=== PATIENT | male | born 1970 | race Caucasian/White ===

== ENCOUNTER 2019-04-12 08:00 | Day surgery (SDC) | payer MEDICAID ==
[~2019-04-12] VITALS: Ht 177.8 cm; Wt 135.9 kg
[2019-04-12 09:38] VITALS: BP 125/63; PULSE 54; TEMP 97.2
[2019-04-12] MEDS ORDERED: SYNTHROID0.075 MG/T PO (09:45)
[2019-04-12] MEDS ORDERED: LEVOXYL0.2 MG PO (09:46)
[2019-04-12] MEDS ORDERED: EFFEXOR XR75 MG/CAP PO (09:48)
[2019-04-12] MEDS ORDERED: ZYLOPRIM 300MG300 MG PO (09:48)
[2019-04-12] MEDS ORDERED: EFFEXOR-XR150 MG PO (09:49)
[2019-04-12] MEDS ORDERED: NAPROSYN500 MG PO (09:50)
[2019-04-12] MEDS ORDERED: PROTONIX 40MG T40 MG PO (09:51)
--- NOTE | 2019-04-12 10:54 | NUR ---
Pt taken via cart to OR by ANNITA Dyson for scheduled surgery.
[2019-04-12 13:00] VITALS: BP 137/69; PULSE 89; TEMP 98.5
--- NOTE | 2019-04-12 13:00 | NUR ---
Pt returned via cart to bay 6. A&O. Tolerating water while in PACU. VSS-see flowsheet. IVF continue to infuse to 20g in right hand. Surgical incisions to abdomen x4 clean, dry and intact with surgical glue. Pt denies pain or nausea. Requested applesauce and pepsi. Side rails up and call light in reach.
[2019-04-12 13:15] VITALS: BP 134/69; PULSE 72
[2019-04-12 13:30] VITALS: BP 133/65; PULSE 63
[2019-04-12 13:45] VITALS: BP 139/69; PULSE 80
--- NOTE | 2019-04-12 14:30 | NUR ---
Pt tolerated applesauce, muffin and pepsi. VS remain stable. C/O mild discomfort in abdomen, incisions remain C/D/I. Encouraged activity to relieve gas from surgery that can cause discomfort. Pt ambulated to bathroom with SBA, voided without difficulty. IV removed, pressure dressing applied. After pt dressed, discharge teaching completed. Pt verbalized understanding. Taken via wheelchair to mothers private vehicle for dc home with her driving.
== END 2019-04-12 14:30 | disposition home or self-care (01) ==
LOC: SDCO 08:00
DX: K81.1 Chronic cholecystitis (principal); M19.90 Unspecified osteoarthritis, unspecified site; E11.9 Type 2 diabetes mellitus without complications; F41.9 Anxiety disorder, unspecified; M10.9 Gout, unspecified; G89.29 Other chronic pain; M54.9 Dorsalgia, unspecified; K21.9 Gastro-esophageal reflux disease without esophagitis; I10 Essential (primary) hypertension; F32.9 Major depressive disorder, single episode, unspecified; E03.9 Hypothyroidism, unspecified; Z83.3 Family history of diabetes mellitus; Z87.891 Personal history of nicotine dependence
CPT/HCPCS: J0690; J1100; J1885; J2405; J2704; J3010; J7120

== ENCOUNTER 2019-12-19 17:58 | Observation (INO) | payer MEDICAID ==
[~2019-12-19] VITALS: Ht 177.8 cm; Wt 136.4 kg
[~2019-12-19 17:58] MED LIST: EFFEXOR XR75 MG/CAP PO; EFFEXOR-XR150 MG PO; LEVOXYL0.2 MG PO; NAPROSYN500 MG PO; PROTONIX 40MG T40 MG PO; SYNTHROID0.075 MG/T PO; ZYLOPRIM 300MG300 MG PO
--- NOTE | 2019-12-19 19:00 | NUR ---
Report received from ANNITA Griffin at 1900. Pt resting in bed, denied needs. Awaiting COVID swab results and orders from . Dr. Phan notified of pt's arrival to unit. Will continue to monitor.
--- NOTE | 2019-12-19 19:10 | NUR ---
Rapid swab completed per house fellow
[2019-12-19 21:08] VITALS: BP 119/64; PULSE 54; TEMP 100.4
--- NOTE | 2019-12-19 22:43 | NUR ---
COVID swab came back negative. Pt taken off isolation precautions. Admission assessment and med rec completed. Pt not a great historian. Reports abdominal pain and N/V for last several days but denies at this time. Currently reports headache and pain in throat, PRN Tylenol administered. Describes throat pain as "feeling like someone is trying to pull out my tonsils." Reports having diarrhea and fevers for several days as well. Had BM and urinated after arrival, BM watery and brown, urine ranjan and cloudy. IV to right AC intact and flushes easily. Dressing reinforced. NS with 20 mEq K+ started at 125 ml/hr and one dose of Zosyn administered. Pt oriented to room. Call light in reach. Will continue to monitor.
[2019-12-20] VITALS (8 sets, daily range): BP systolic 108–135; BP diastolic 51–70; PULSE 52–67; TEMP 98–100.4
[2019-12-20] MEDS ORDERED: PROZAC 20MG20 MG PO (00:10)
[2019-12-20] MEDS ORDERED: PRIL40 PO (00:11)
[2019-12-20] MEDS ORDERED: COLESTID 1GM1 G PO (00:12)
[2019-12-20 00:29] LABS: COLLECTION METHOD CLEAN CATCH
[2019-12-20 00:45] LABS: PH 5 (5-8); SQUAMOUS EPITHELIAL None Seen /hpf; URINE APPEARANCE Clear; URINE BACTERIA None Seen /hpf; URINE BILIRUBIN Negative (NEGATIVE); URINE BLOOD Negative (NEGATIVE); URINE COLOR Yellow; URINE GLUCOSE Negative (NEGATIVE); URINE KETONE Trace (NEGATIVE); URINE LEUKOCYTE ESTERASE Negative (NEGATIVE); URINE NITRATE Negative (NEGATIVE); URINE PROTEIN(semi-quant) 1+ (NEGATIVE); URINE UROBILINOGEN Negative (NEGATIVE); URINE WBC 0-2 /hpf
[2019-12-20 01:43] LABS: CLOSTRIDIUM DIFF A/B NEG; CLOSTRIDIUM DIFF A/B INTERP NonToxigenic C.diff
--- NOTE | 2019-12-20 02:15 | NUR ---
Placed in contact isolation due to positive Cdiff antigen and continuing diarrhea.
--- NOTE | 2019-12-20 05:36 | NUR ---
Asleep in bed most of night. Complaints of headache and throat pain last night, relieved by Tylenol. No complaint of pain since. One loose stool during night. Denies abdominal pain since arrival. Pt has had low grade fevers throughout night with temps around 100F. IV fluids with K+ still infusing at 125 ml/hr. Cdiff antigen positive, pt currently on contact precautions.
[2019-12-20 09:11] LABS: HEMATOCRIT 37.1 % (42.0-52.0); HEMOGLOBIN 12.8 g/dl (13.5-18.0); MEAN CELL VOLUME 96 fl (80.0-100.0); MEAN CORPUSCULAR HEMOGLOBIN 33 pg (27.0-31.0); MEAN CORPUSCULAR HGB CONC 35 g/dl (33.0-37.0); MEAN PLATELET VOLUME 10.7 fl (7.4-10.4); PLATELET COUNT 186 K/mm3 (130-400); RED BLOOD COUNT 3.88 M/mm3 (4.20-5.60); REDCELL DISTRIBUTION WIDTH-CV 11.9 % (11.5-14.5)
[2019-12-20 09:23] LABS: CALCIUM 8.2 mg/dL (8.4-10.2); CREATININE, serum 1.03 (0.66-1.25); POTASSIUM 3.9 mmol/L (3.4-5.0)
[2019-12-20 09:32] LABS: BAND 16 % (0-10); LYMPHOCYTE 14 % (20.0-51.0); NEUTROPHILS 56 % (42.0-75.2)
[2019-12-20 09:33] LABS: PLATELET ESTIMATE NORMAL (NORMAL)
--- NOTE | 2019-12-20 10:12 | NUR ---
Pt assessment completed and charted. Medications administered per may. Pt laying in bed, A&O, independent in room. Pt has RAC IV, NS w/ 20K MEQ running, no issues noted. Pt on room air, breathing is even and unlabored, denies SOB. Pt denies chest pain, N/V, abdominal pain, numbness or tingling. Pt c/o headache and some diarrhea, this nurse has not witnessed diarrhea yet. LS CTA, BS active X4, no edema noted. Heart RRR. Tylenol PRN administered per may, pt also running temp of 100.0 this morning. Pt requested to shower, set up for that. No further needs at this time. Call light within reach.
--- NOTE | 2019-12-20 13:10 | NUR ---
Pt VSS, Soft BP, will monitor, Temp down to 98.4. Pt showered, states he still has a bit of a headache, rating pain 8/10.
--- NOTE | 2019-12-20 16:23 | NUR ---
Pt received PRN [place] per mar, BPs improved. VSS. No further needs. IVF rate decreased to 80ml/hr per additional nursing order.
--- NOTE | 2019-12-20 16:23 | NUR ---
The patient tested postive for c.diff. SWEstelle, attempted to contact the patient to discuss discharge plan. The patient did not answer. This SW contacted the patient's mother, Tika Arce (ph#[phone]), to complete intake. Tika did not realize the patient was here. Tika's and the patient's father is also hospitalized at [facility] at this time. Tika states that the patient lives alone in [place]. He is independent with ADLs and does not have any DME. Tika states that the patient has a female PCP in [place]. He receives his medications at [facility] in [place]. She states that she is unsure if the patient has a DPOA-HC. Tika states that the patient is . He has five children in all. Four are adults. His yymqgha-jfgs-axo is staying with Tika right now. SW to continue to follow.
--- NOTE | 2019-12-20 23:43 | NUR ---
pt resting in bed, bowel prep started and pt verbalizes understanding. heart sounds are regular and lung sounds are clear. pt denies shortness of breath and chest pain. pt reports a headache, gave tylenol per MAR. will continue to monitor.
[2019-12-21 03:52] VITALS: BP 115/64; PULSE 54; TEMP 98.6
--- NOTE | 2019-12-21 05:33 | NUR ---
pt resting in bed most of the night, frequent liquid stools throughout the night. pt continues to finish bowel prep. pt reported headache throughout the night, gave tylenol per MAR. will continue to montior.
[2019-12-21 06:36] LABS: HEMOGLOBIN 12.1 g/dl (13.5-18.0); MEAN CELL VOLUME 96 fl (80.0-100.0); MEAN CORPUSCULAR HEMOGLOBIN 32 pg (27.0-31.0); MEAN CORPUSCULAR HGB CONC 34 g/dl (33.0-37.0); MEAN PLATELET VOLUME 10.5 fl (7.4-10.4); PLATELET COUNT 193 K/mm3 (130-400); RED BLOOD COUNT 3.74 M/mm3 (4.20-5.60); REDCELL DISTRIBUTION WIDTH-CV 11.9 % (11.5-14.5)
[2019-12-21 06:54] LABS: CALCIUM 8.1 mg/dL (8.4-10.2); CREATININE, serum 0.94 (0.66-1.25); POTASSIUM 3.7 mmol/L (3.4-5.0)
[2019-12-21 07:04] LABS: C-REACTIVE PROTEIN 12.3 mg/dL (0.0-0.9)
[2019-12-21 07:33] LABS: HEMATOCRIT 35.7 % (42.0-52.0)
[2019-12-21 08:23] VITALS: BP 121/68; PULSE 51; TEMP 97.9
--- NOTE | 2019-12-21 09:00 | NUR ---
Assessment completed, alert/oriented, vital signs stable, cynthia pain, denies N/V, abdomen is soft and non-tender and BS+, scheduled for EGD/Colon/Cysto this morning, did bowel prep overnight with good results, has been NPO and consent signed, denies other needs at this time
--- NOTE | 2019-12-21 09:00 | NUR ---
patient is going down for EGD/Colon/cysto at this time, consent(s) signed, IVF on gravity tubing and patient has completed Bowel prep over night and has been NPo sence midnight
[2019-12-21 09:14] LABS: BAND 18 % (0-10); BASOPHIL 1 % (0-2); EOSINOPHIL 2 % (0-4); NEUTROPHILS 34 % (42.0-75.2)
[2019-12-21 09:16] LABS: LYMPHOCYTE 32 % (20.0-51.0); PLATELET ESTIMATE NORMAL (NORMAL)
[2019-12-21 11:31] VITALS: BP 132/73; PULSE 53; TEMP 97.7
[2019-12-21] MEDS ORDERED: CEFTIN500 MG PO (13:54)
[2019-12-21] MEDS ORDERED: FLAGYL500 MG PO (13:54)
[2019-12-21 17:29] VITALS: BP 120/60; PULSE 54; TEMP 97.7
[2019-12-21 19:26] VITALS: BP 119/75; PULSE 50; TEMP 97.7
--- NOTE | 2019-12-21 22:56 | NUR ---
Pt resting in bed, on contact precautions. pt reports headache rated a 7 out of 10, gave tylenol per MAR. heart sounds are regular and lungs are clear. pt denies shortness of breath, cough or chest pain. pt denies nausea or vomiting. independent in the room, IV fluids infusing. no other needs at this time.
[2019-12-21 23:58] VITALS: BP 129/67; PULSE 55; TEMP 98.5
--- NOTE | 2019-12-22 00:14 | NUR ---
pt reported that tylenol did not help his headache, gave norco per MAY. pt is awake and alert, will continue to monitor.
[2019-12-22 04:25] VITALS: BP 120/69; PULSE 56; TEMP 98.1
--- NOTE | 2019-12-22 05:17 | NUR ---
pt sleeping in bed most of the night, independent in room. pt reported headache, gave tylenol per MAR. did not relieve pain, gave norco per MAR. pt reports improvement in pain. pt on room air. no other needs at this time, will continue to montior.
[2019-12-22 08:00] VITALS: BP 138/368; BP 138/68; PULSE 57; TEMP 98.8
--- NOTE | 2019-12-22 09:00 | NUR ---
Patient laying in bed watching TV. A&Ox3. VSS. IV CDI, fluids infusing. Reporting a headache, pain medication requested. No further needs expressed from the patient. Call light within reach. Contact precautions in place.
--- NOTE | 2019-12-22 13:15 | NUR ---
Discharge paperwork reviewed with the patient. Patient verbalized an understanding to follow doctors orders. IV removed, tip intact, gauze applied. Patient request to take a shower before leaving to go home. No further needs expressed from the patient. Nurse walked the patient and daughter to ER entrance. Personal belongings with the patient
== END 2019-12-22 13:15 | disposition home or self-care (01) ==
LOC: MEDICAL 17:58 → PEDS 17:58 → MEDICAL 12-20 21:43
PROVIDERS: ADMIT Surgery
DX: K29.50 Unspecified chronic gastritis without bleeding (principal); N30.80 Other cystitis without hematuria; D12.2 Benign neoplasm of ascending colon; D12.8 Benign neoplasm of rectum; K57.30 Diverticulosis of large intestine without perforation or abscess without bleeding; F41.9 Anxiety disorder, unspecified; I10 Essential (primary) hypertension; K21.9 Gastro-esophageal reflux disease without esophagitis; E03.9 Hypothyroidism, unspecified; R20.2 Paresthesia of skin; F31.9 Bipolar disorder, unspecified; M10.9 Gout, unspecified; M54.10 Radiculopathy, site unspecified; G89.29 Other chronic pain; M19.90 Unspecified osteoarthritis, unspecified site; E66.9 Obesity, unspecified; Z68.41 Body mass index [BMI] 40.0-44.9, adult; Z20.828 Contact with and (suspected) exposure to other viral communicable diseases; Z91.048 Other nonmedicinal substance allergy status; Z88.7 Allergy status to serum and vaccine; Z90.49 Acquired absence of other specified parts of digestive tract; Z79.899 Other long term (current) drug therapy
CPT/HCPCS: G0378; G0379; J1650; J2543; J2704; J3480; J7120

== ENCOUNTER 2020-11-28 11:03 | Inpatient (IN) | payer MEDICAID ==
[~2020-11-28] VITALS: Ht 177.8 cm; Wt 124.6 kg
[~2020-11-28 11:03] MED LIST changes: +CEFTIN500 MG PO; +COLESTID 1GM1 G PO; +FLAGYL500 MG PO; +PRIL40 PO; +PROZAC 20MG20 MG PO
[2021-01-07] VITALS (11 sets, daily range): BP systolic 107–199; BP diastolic 55–78; PULSE 44–78; TEMP 97.5–98.1
--- NOTE | 2021-01-07 08:10 | NUR ---
Patient ambulated back to bay #6 without difficuly, using a steady gait. Vitals obtained. Consent signed. Patient stated he is a very difficult stick. IV was successful on the third attempt using a #20 in the left hand. LR is infusing without difficuly. IVPB flagyl started and is currently infusing without difficuly. PO meds administered. Medication list reviewed and patient stated stopping all medicaitons two years ago due to the side effects. He stated that he was "very mad about having to take medication." DR notified. Warm blanket given, non-slip socks are on and call lazcano is within reach. Patient has voided.
[2021-01-07 09:07] LABS: BASO % 0.6 % (0.0-2.0); EOS # 0.1 K/mm3 (0.0-0.7); EOS % 1.7 % (0-4.0); GRAN # 4.4 K/mm3 (1.4-6.5); GRAN % 66.8 % (42.2-75.2); HEMATOCRIT 44.4 % (42.0-52.0); HEMOGLOBIN 15.2 g/dl (13.5-18.0); LYMPH # 1.3 K/mm3 (1.2-3.4); LYMPH % 19.2 % (20.0-51.0); MEAN CELL VOLUME 98 fl (80.0-100.0); MEAN CORPUSCULAR HEMOGLOBIN 34 pg (27.0-31.0); MEAN CORPUSCULAR HGB CONC 34 g/dl (33.0-37.0); MEAN PLATELET VOLUME 9.8 fl (7.4-10.4); MONO # 0.8 K/mm3 (0.1-0.6); MONO % 11.4 % (1.7-9.3); PLATELET COUNT 227 K/mm3 (130-400); RED BLOOD COUNT 4.54 M/mm3 (4.20-5.60); REDCELL DISTRIBUTION WIDTH-CV 12.1 % (11.5-14.5)
[2021-01-07 09:20] LABS: CALCIUM 10.3 mg/dL (8.4-10.2); CREATININE, serum 1.09 mg/dL (0.72-1.25); POTASSIUM 4.2 mmol/L (3.5-4.5)
--- NOTE | 2021-01-07 12:45 | NUR ---
Patient got up to void at this time. IV reconnected after getting back to bed.
--- NOTE | 2021-01-07 14:42 | NUR ---
Patient received post op from Maryellen Raya. Patient awake, but sleepy. Vitals stable on room air. Abdomen soft. Insicion site edges well approximated. Dupont to DD. Ice water provided, denies nausea. Tylenol given per schedule. Eras protocol scheduled.
--- NOTE | 2021-01-07 19:27 | NUR ---
Patient has done well post op. Vitals stable, he continues to be bradycardic. Eras protocol. Does report shoudler pain, we reviewed gas pain. Patient wanted to try and have BM. Assisted to the bathroom. He has tolerted clear liquids without nausea. Dupont to DD, marginal urineoutput. Continue with IVF. Scds ble. Report to darnell Abarca
--- NOTE | 2021-01-07 20:00 | NUR ---
Report received, assumed care for shift. Assessment complete. A&Ox4. Denies pain/nausea/shortness of breath. VS remain stable. Lap sites x5-edges well approximated-no drainage noted. Low transverse abdominal incision-edges well approximated-no drainage noted. Surgical glue intact. Has tolerated clear liquids. Adhering to no straws or corbonation. Chewing gum. Dupont cath with clear yellow urine. Up out of bed at this time with stand by assist. Ambulated approx 100 feet. SCDs bilat. Denies questions/concerns. Call light in reach. Will monitor.
--- NOTE | 2021-01-07 20:10 | NUR ---
Called stating he changed his mind and would like a pain pill. Rating pain 6/10 on pain scale. States after walking pain was worse. Oxycodone given per dr elizabeth.
[2021-01-08 00:32] VITALS: BP 98/52; PULSE 48; TEMP 97.8
--- NOTE | 2021-01-08 03:27 | NUR ---
Resting eyes closed. No s/s of pain or discomfort noted.
[2021-01-08 05:00] VITALS: BP 95/53; PULSE 55; TEMP 97.3
--- NOTE | 2021-01-08 05:01 | NUR ---
Rating pain 2/10 on pain scale to abdomen. Scheduled motrin given. Reports +flatus. Denies nausea/shortness of breath. VS remain stable. Received oxycodone x1 for pain early in shift. Was up out of bed x1. Tolerated clear liquids/crackers. Diet advanced for AM meal. Output adequate for shift but remains tea colored. Denies current needs. Call light in reach. Will monitor.
[2021-01-08 06:26] LABS: HEMATOCRIT 37.9 % (42.0-52.0)
[2021-01-08 06:31] LABS: HEMOGLOBIN 13.1 g/dl (13.5-18.0)
[2021-01-08 06:55] LABS: CALCIUM 9.1 mg/dL (8.4-10.2); CREATININE, serum 1.09 mg/dL (0.72-1.25); MAGNESIUM 1.9 mg/dL (1.6-2.6); PHOSPHOROUS 3.6 mg/dL (2.3-4.7); POTASSIUM 4.1 mmol/L (3.5-4.5)
[2021-01-08 07:09] VITALS: BP 109/61; PULSE 44; TEMP 98.6
--- NOTE | 2021-01-08 09:35 | NUR ---
Patient alert and oriented, answers questions appropriately. See assessment. Abdomen soft, tender, non distended. Bowel sounds active x4 quads. +Flatus. Lap and low transverse incisions to abdomen with edges well approximated, no redness or drainage noted. Dupont catheter in place, patent, draining clear yellow urine. Post op exercises reviewed with patient. No c/o at this time.
--- NOTE | 2021-01-08 10:14 | NUR ---
ANALI met with the patient to discuss discharge plan. The patient lives alone in [place]. He reports independence with ADLs and has a cane. The patient's PCP is Dr. Maddi Gutierrez in [place] and he receives his medications from [facility] in [place]. He reports no difficulties obtaining his meds. The patient has a DPOA-HC in EMR that designates his ex-. The patient reports that he would like to complete a new DPOA-HC and designate his mother, Tika Arce (ph#[phone]). ANALI provided the form. ANALI and CHRISTINA Gonsalez, witnessed the patient's signature. ANALI provided the patient with the orginal and some copies. ANALI placed a copy in the patient's chart. The patient plans to return home upon discharge. No additional needs at this time. *Discharge plan: home*
[2021-01-08 12:19] VITALS: BP 128/69; PULSE 45; TEMP 97.6
[2021-01-08 16:00] VITALS: BP 139/91; PULSE 57; TEMP 97.9
[2021-01-08 19:32] VITALS: BP 113/59; PULSE 63; TEMP 98.6
--- NOTE | 2021-01-08 19:33 | NUR ---
RECEIVED CHANGE OF SHIFT REPORT FROM DAY SHIFT NURSE.
[2021-01-09] VITALS (7 sets, daily range): BP systolic 100–123; BP diastolic 54–78; PULSE 56–82; TEMP 97.7–98.8
--- NOTE | 2021-01-09 | NUR ---
PATIENT UP INDEPENDENTLY IN ROOM AND IN HALLS WITH NO REPORTED PROBLEMS OR CONCERNS. BRADFORD IN PLACE, DRAINING CLEAR DARK YELLOW URINE. OBSERVED DRIED BLOODY DRAINAGE TO END OF PENIS AND AROUND CATHETER. REPORTED SOME DISCOMFORT WITH BRADFORD CATH CARE DUE TO OBSERVED REDNESS URINARY MEATUS EDGES WITH NO ACTIVE DRAINAGE OBSERVED DURIONG BRADFORD CATH CARE. RESTING WITH EYE CLOSED, ONLY WAKES WHEN HIS NAME IS CALLED. DENIES CHEST PAIN/SOA/NAUSEA SO FAR THIS SHIFT.
--- NOTE | 2021-01-09 06:54 | NUR ---
CHANGE OF SHIFT REPORT GIVEN TO DAY SHIFT NURSELAURA RN.
--- NOTE | 2021-01-09 08:59 | NUR ---
Patient resting in bed. Offered a walk, not interested at this time. He reports tolerting breakfast. Denies nausea. Pain managed at this time per ERAS. Abdomen soft, incision site edges well approximated. rounded. Will monitor.
--- NOTE | 2021-01-09 11:27 | NUR ---
Patient has voided since giles removal. Student nurse assist with cares. He ambulated the halls independently. Will monitor.
--- NOTE | 2021-01-09 18:36 | NUR ---
Patient continues to do well. Minimal needs or complaints. Continues to tolerated meals. Ant issues going to the bathroom. Will report off to nightnurse
--- NOTE | 2021-01-09 20:56 | NUR ---
PT IN BED, REPORTS PAIN TO ABD 5/10. MEDICATED WITH OXYCODONE 5MG PO WITH SCHEDULED ES TYLENOL. LAP SITES TO ABD D/I. SL TO LEFT HAND. VOIDING WITHOUT PROBLEM.
--- NOTE | 2021-01-10 03:00 | NUR ---
PT DROWSY, TAKES SCHEDULED TYLENOL AT THIS TIME.
[2021-01-10 03:38] VITALS: BP 115/65; PULSE 76; TEMP 97.5
--- NOTE | 2021-01-10 06:00 | NUR ---
SCHEDULED AM MEDS GIVEN. NO REQUEST FOR STRONGER PAIN MEDS AT THIS TIME.
--- NOTE | 2021-01-10 08:00 | NUR ---
Patient in bed resting. Alert and oriented x 3. Assessment complete. Lap sites x5 and low transverse site with edges well approximated. INT to right hand. Paient denies pain at this time. Denies needs at this time.
[2021-01-10 08:27] VITALS: BP 104/56; PULSE 56; TEMP 97.8
--- NOTE | 2021-01-10 10:00 | NUR ---
Discharge eduation provided to patient. Educated on when to call provider and schedule follow up appointment. Patient educated on signs and symptoms of infection. All questions answered. INT to right hand discontinued, catheter tip intact. Denies needs at this time. Will report off to rn night.
== END 2021-01-10 10:00 | disposition home or self-care (01) | DRG 330 ==
LOC: SURG 01-07 08:02 → INPTSU 01-07 08:02 → SURG 01-07 10:00
PROVIDERS: ADMIT Surgery
PROC: 8E0W4CZ Robotic Assisted Procedure of Trunk Region, Percutaneous Endoscopic Approach (ICD-10-PCS; 2021-01-07)
PROC: 0TJB8ZZ Inspection of Bladder, Via Natural or Artificial Opening Endoscopic (ICD-10-PCS; 2021-01-07)
PROC: 0DTN4ZZ Resection of Sigmoid Colon, Percutaneous Endoscopic Approach (ICD-10-PCS; principal; 2021-01-07 10:00)
DX: K57.32 Diverticulitis of large intestine without perforation or abscess without bleeding (principal); N32.1 Vesicointestinal fistula
CPT/HCPCS: A4314; A9284; C1769; J0690; J1170; J1650; J1885; J2250; J2405; J2704; J2795; J3010; J7120

== ENCOUNTER 2021-01-22 16:05 | Inpatient (IN) | payer MEDICAID ==
[~2021-01-22] VITALS: Ht 177.8 cm; Wt 118.9 kg
--- NOTE | 2021-01-22 19:49 | NUR ---
Pt. arrived to the floor at 1900. Pt. is A&OX3, assessment complete. INT to lt. ac and rt. forearm. Pt. reports pain at a 5 at this time. Abd. incisions noted from previous surgery noted. sites are well approximated. Dupont catheter placed at [facility]. Urine is clear yellow. Pt. denies needs, call light within reach.
[2021-01-22 19:54] VITALS: BP 97/49; PULSE 97; TEMP 98.8
[2021-01-22 23:01] VITALS: BP 105/57; PULSE 89; TEMP 97.9
[2021-01-23] VITALS (14 sets, daily range): BP systolic 88–116; BP diastolic 46–62; PULSE 70–89; TEMP 98.1–99.3
[2021-01-23 07:13] LABS: ALBUMIN 2.2 gm/dL (3.5-5.0); BILIRUBIN,TOTAL 1.1 mg/dL (0.2-1.2); CALCIUM 8.6 mg/dL (8.4-10.2); CREATININE, serum 0.82 mg/dL (0.72-1.25); POTASSIUM 3.9 mmol/L (3.5-4.5); TOTAL PROTEIN 5.7 gm/dL (6.2-8.1)
[2021-01-23 07:21] LABS: HEMOGLOBIN 10.9 g/dl (13.5-18.0); MEAN CELL VOLUME 98 fl (80.0-100.0); MEAN CORPUSCULAR HEMOGLOBIN 33 pg (27.0-31.0); MEAN CORPUSCULAR HGB CONC 33 g/dl (33.0-37.0); MEAN PLATELET VOLUME 10.1 fl (7.4-10.4); PLATELET COUNT 472 K/mm3 (130-400); RED BLOOD COUNT 3.33 M/mm3 (4.20-5.60); REDCELL DISTRIBUTION WIDTH-CV 12.5 % (11.5-14.5)
[2021-01-23 07:23] LABS: HEMATOCRIT 32.7 % (42.0-52.0)
[2021-01-23 08:10] LABS: BAND 33 % (0-10); EOSINOPHIL 1 % (0-4); LYMPHOCYTE 3 % (20.0-51.0); NEUTROPHILS 60 % (42.0-75.2); PLATELET ESTIMATE INCREASED (NORMAL)
--- NOTE | 2021-01-23 10:00 | NUR ---
Patient alert and oriented, answers questions appropriately. See assessment. Abdomen, firm, distended. Bowel sounds active x4 quads. Previous lap sites to abdomen with edges well approximated, no redness or drainage noted. Dupont catheter in place to dependent drainage, odorous, thick dark yellow/orange urine noted. No c/o at this time.
--- NOTE | 2021-01-23 11:12 | NUR ---
youth support worker met with patient to discuss discharge plan. Patient states that he lives at home alone in [place]. Patient verbalizes that he is fully independent with his ADL's and does not utilize any DME or O2 at home. Patient states that his PCP is Dr. Maddi Gutierrez out of [place] and her uses [facility] in [place] for perscriptions with no cost difficulty. Patient reports that he does not have a DPOA-HC established. This sw educated the patient and he verbalizes his understanding. States that he is not but does have a 16yr old son. Patient's mother Tika ([phone]) is his NOK. Patient is planning on returning home post dc and has no concerns. Discharge plan: Home
--- NOTE | 2021-01-23 12:18 | NUR ---
Patient to IR at 0945. Returns at 1045. Assessment unchanged except abscess drain in place to mid low abdomen, draining scant amount brown drainage. No c/o at this time.
--- NOTE | 2021-01-23 22:30 | NUR ---
Pt. sitting up in bed. Pt. is A&OX3, assessment complete. INT to lt. ac patent. INT rt. forearm patent, IV fluids infusing per orders. Pt. reports pain at a 4 on pain scale, gave pain meds per orders. Pt. denies further needs, call light within reach.
[2021-01-24] VITALS (7 sets, daily range): BP systolic 104–127; BP diastolic 58–77; PULSE 61–77; TEMP 97.2–98.6
--- NOTE | 2021-01-24 07:45 | NUR ---
Patient reporting tingling/itching in mouth and throat. Patient thinks it might be the Zosyn. No complaints of pain, SOB. Zosyn stopped, will notify pharmacy and doctor. Call light within reach
[2021-01-24 08:00] LABS: HEMOGLOBIN 11.1 g/dl (13.5-18.0); MEAN CELL VOLUME 98 fl (80.0-100.0); MEAN CORPUSCULAR HEMOGLOBIN 32 pg (27.0-31.0); MEAN CORPUSCULAR HGB CONC 33 g/dl (33.0-37.0); MEAN PLATELET VOLUME 9.7 fl (7.4-10.4); PLATELET COUNT 486 K/mm3 (130-400); RED BLOOD COUNT 3.44 M/mm3 (4.20-5.60); REDCELL DISTRIBUTION WIDTH-CV 12.5 % (11.5-14.5)
--- NOTE | 2021-01-24 08:00 | NUR ---
Patient laying in bed, A&Ox4. VSS. IV CDI. Drain LLQ CDI. Dupont intact. Nurse restarted IV Zosyn and the patient reported same symptoms of itching tongue and throat. Pharmacy and Doctor aware. Reports pain/tenderness in abdomen. Pain medication given as requested. Call light within reach. No further needs expressed
[2021-01-24 08:05] LABS: HEMATOCRIT 33.6 % (42.0-52.0)
[2021-01-24 08:24] LABS: CREATININE, serum 0.73 mg/dL (0.72-1.25); POTASSIUM 4.2 mmol/L (3.5-4.5)
--- NOTE | 2021-01-24 18:04 | NUR ---
Patient laying in bed throughout the day. A&Ox4. VSS. IV CDI, fluids infusing. Reposting pain in abdomen, pain medication given when requested. Drain intact, minimal output. Dupont intact. Nursing staff encouraging PO intake. No further needs expressed. Call light within reach
--- NOTE | 2021-01-24 21:00 | NUR ---
Pt. sitting up in bed at this time. Pt. is A&OX3, assessment complete. INT to lt. ac patent, IV to rt. forearm patent, IV fluids infusing per orders. Abscess drain with brown drainage noted. Dupont catheter to DD, urine is ranjan and cloudy but looks improved from this am. Pt. denies further needs, call light within reach.
--- NOTE | 2021-01-24 23:45 | NUR ---
Pt. reports that the giles catheter is causing him a lot of pain. Pt. asked if it could by discontinued. Dr. Mak notified. Dr. does not want giles removed at this time. New pain med orders received. Pt. educated on why the dr. does not want the Giles removed. Pt. voices understanding and willing to try toradol. Also applied KY jelly to tip of penis to help with discomfort. Pt. reports that that has helped a little. Pt. denies further needs, call light within reach.
[2021-01-25 03:06] VITALS: BP 104/65; PULSE 53; TEMP 98.4
[2021-01-25 08:00] VITALS: BP 133/78; PULSE 54
--- NOTE | 2021-01-25 08:00 | NUR ---
Patient sleeping in bed, easily awakened with verbal command. A&Ox3. VSS. IV CDI, fluids infusing. Denies pain and discomfort. Lap sitesx7 CDI. Drain CDI. Brown output. Dupont intact. No further needs expressed. Call light within reach
[2021-01-25 10:46] LABS: HEMOGLOBIN 11.5 g/dl (13.5-18.0); MEAN CELL VOLUME 102 fl (80.0-100.0); MEAN CORPUSCULAR HEMOGLOBIN 32 pg (27.0-31.0); MEAN CORPUSCULAR HGB CONC 32 g/dl (33.0-37.0); MEAN PLATELET VOLUME 10.2 fl (7.4-10.4); PLATELET COUNT 505 K/mm3 (130-400); RED BLOOD COUNT 3.57 M/mm3 (4.20-5.60); REDCELL DISTRIBUTION WIDTH-CV 12.6 % (11.5-14.5)
[2021-01-25 10:48] LABS: HEMATOCRIT 36.3 % (42.0-52.0)
[2021-01-25 11:07] LABS: ALBUMIN 2.4 gm/dL (3.5-5.0); BILIRUBIN,TOTAL 0.7 mg/dL (0.2-1.2); CALCIUM 8.4 mg/dL (8.4-10.2); CREATININE, serum 0.75 mg/dL (0.72-1.25); POTASSIUM 5.2 mmol/L (3.5-4.5); TOTAL PROTEIN 5.4 gm/dL (6.2-8.1)
[2021-01-25 11:34] LABS: BAND 7 % (0-10); EOSINOPHIL 3 % (0-4); LYMPHOCYTE 12 % (20.0-51.0); NEUTROPHILS 72 % (42.0-75.2)
[2021-01-25 11:35] LABS: PLATELET ESTIMATE INCREASED (NORMAL)
[2021-01-25 11:56] VITALS: BP 130/73; PULSE 54; TEMP 97.5
--- NOTE | 2021-01-25 14:28 | NUR ---
Patient recieved from ANNITA Gallego. Upon initial encounter patient denies any pain, discomfort, SOA, or further needs at this time. Call light inreach. Encourged to call if needs arise.
[2021-01-25 16:00] VITALS: BP 121/75; PULSE 56; TEMP 97.5
--- NOTE | 2021-01-25 18:00 | NUR ---
Patient has had an ok day. PRN zofran given for upset stomach. Dupont catheter in place, securement device in use, no kinks in tubing. Cath care completed. Patient denies any pain, discomfort, or further needs at this time. Call light in reach.
[2021-01-25 22:10] VITALS: BP 126/66; PULSE 56; TEMP 98.4
--- NOTE | 2021-01-25 22:31 | NUR ---
Patient received from ANNITA Prince. Upon enter the room, patient in bed and watching TV. Patient A/Ox4. IVF infusing per MAR. Noticed right forearm IV site infiltrated. Right forearm very swollen. IV removed and elevated arm on the pillow. Patient denies N/V but states having some abdominal discomfort. PRN [place] given for pain/discomfort. Pepsi and crackers provided per patient request. Call light in reach. Will continue to monitor.
[2021-01-26] VITALS (7 sets, daily range): BP systolic 108–116; BP diastolic 60–74; PULSE 54–64; TEMP 97.5–98.2
--- NOTE | 2021-01-26 06:00 | NUR ---
Patient had x1 loose BM this morning. Changed brief, quinton-care and giles care provided. Call light in reach. Will continue to monitor.
[2021-01-26 06:10] LABS: HEMOGLOBIN 11.9 g/dl (13.5-18.0); MEAN CELL VOLUME 99 fl (80.0-100.0); MEAN CORPUSCULAR HEMOGLOBIN 32 pg (27.0-31.0); MEAN CORPUSCULAR HGB CONC 32 g/dl (33.0-37.0); MEAN PLATELET VOLUME 9.8 fl (7.4-10.4); PLATELET COUNT 565 K/mm3 (130-400); REDCELL DISTRIBUTION WIDTH-CV 12.4 % (11.5-14.5)
[2021-01-26 06:12] LABS: HEMATOCRIT 36.7 % (42.0-52.0)
[2021-01-26 06:43] LABS: ALBUMIN 2.3 gm/dL (3.5-5.0); CALCIUM 8.3 mg/dL (8.4-10.2); CREATININE, serum 0.73 mg/dL (0.72-1.25); PHOSPHOROUS 4.5 mg/dL (2.3-4.7)
[2021-01-26 07:15] LABS: BAND 2 % (0-10); EOSINOPHIL 2 % (0-4); LYMPHOCYTE 10 % (20.0-51.0); NEUTROPHILS 73 % (42.0-75.2); PLATELET ESTIMATE INCREASED (NORMAL)
--- NOTE | 2021-01-26 09:00 | NUR ---
Pt sleeping upon entering room. He reported that he did not fall asleep until about 5am. Pt reports not having much of an appetite and that his stomach just feels quezy. Incisions all well approximated with no redness or drainage noted - drain in place with small amount of drainage. Pt denies any needs, requests lights to be out so that he can get some sleep
--- NOTE | 2021-01-26 11:00 | NUR ---
Pt resting with eyes closed, even non labored breathing
--- NOTE | 2021-01-26 17:51 | NUR ---
Pt rested off and on throughout the day. He is tolerating PO intake, but is not eating a lot. Reports that he is overall feeling better. Drain putting out small amount of output. Pt reports that he is having some loose stool and is asking for something. Will notify physician
--- NOTE | 2021-01-26 20:20 | NUR ---
Pt. laying in bed watching TV at this time. Pt. is A&OX3, assessment complete. IV to lt. ac patent. Pt. reports pain to abd at a 4 on pain scale, gave pain meds per orders. Abscess drain to abd. brown drainage noted. Abd. incision well approximated. Pt. denies further needs, call light within reach.
[2021-01-27] VITALS (7 sets, daily range): BP systolic 104–125; BP diastolic 58–73; PULSE 51–62; TEMP 97.3–98.1
--- NOTE | 2021-01-27 09:29 | NUR ---
Patient to CT scan via wheelchair with CT staff at 0910.
[2021-01-27 10:44] LABS: C-REACTIVE PROTEIN 4.96 mg/dL (0.00-0.50); CALCIUM 8.4 mg/dL (8.4-10.2); CREATININE, serum 0.79 mg/dL (0.72-1.25); POTASSIUM 4.3 mmol/L (3.5-4.5)
--- NOTE | 2021-01-27 12:33 | NUR ---
Patient alert and oriented, answers questions appropriately. See assessment. Abdomen firm, rounded. Previous lap sites with edges well approximated, no redness or drainage noted. Abscess drain to LLE with dressing CDI, no drainage noted in bag. Dupont catheter in place to dependent drainage, draining clear yellow urine. Activity reviewed with patient. No c/o at this time.
--- NOTE | 2021-01-27 20:45 | NUR ---
Pt. laying in bed. Pt. is A&OX3, assessment complete. INT to lt ac patent. Pt. reports abd pain at a 3 on pain scale and denies need for pain medication. Wound drain noted. Pt. denies further needs, call light within reach.
[2021-01-28 03:18] VITALS: BP 117/62; PULSE 52; TEMP 98.5
[2021-01-28 07:51] VITALS: BP 111/62; PULSE 57; TEMP 97.5
--- NOTE | 2021-01-28 10:00 | NUR ---
Patient alert and oriented, answers questions appropriately. See assessment. Abdomen soft, non tender, non distended. Bowel sounds active x4 quads. +Flatus. +Bowel movement. Abscess drain to LLE with dressing CDI, draining scant amount of brown drainage. Dupont catheter in place, patent, draining clear ranjan urine. Previous lap sites to abdomen with edges well approximated, no redness or drainage noted. No c/o at this time.
[2021-01-28 12:21] VITALS: BP 121/71; PULSE 65; TEMP 97.7
--- NOTE | 2021-01-28 14:55 | NUR ---
Giles catheter removed at 1400 per Drs order. Tolerated well. Porsha care completed. Voided 200ml ranjan urine approx ten minutes after giles removal.
[2021-01-28 15:40] VITALS: BP 113/56; PULSE 59; TEMP 97.5
[2021-01-28 19:11] VITALS: BP 119/58; PULSE 52; TEMP 98.2
--- NOTE | 2021-01-28 21:45 | NUR ---
Pt. sitting up in bed. Pt. is A&OX3, assessment complete. INT to lt. ac patent. Pt. reports lower abd. pain at a 4 on pain scale, giving pain meds. Abd. abscess drain minimal brown drainage noted. Pt. denies further needs, call light within reach.
[2021-01-28 23:03] VITALS: BP 108/64; PULSE 57; TEMP 98.2
[2021-01-29 03:05] VITALS: BP 112/54; PULSE 59; TEMP 98.1
[2021-01-29 06:40] LABS: HEMOGLOBIN 11.7 g/dl (13.5-18.0); MEAN CELL VOLUME 100 fl (80.0-100.0); MEAN CORPUSCULAR HEMOGLOBIN 32 pg (27.0-31.0); MEAN CORPUSCULAR HGB CONC 32 g/dl (33.0-37.0); MEAN PLATELET VOLUME 9.6 fl (7.4-10.4); PLATELET COUNT 551 K/mm3 (130-400); RED BLOOD COUNT 3.61 M/mm3 (4.20-5.60); REDCELL DISTRIBUTION WIDTH-CV 12.4 % (11.5-14.5)
[2021-01-29 06:41] LABS: HEMATOCRIT 36.1 % (42.0-52.0)
[2021-01-29 07:10] LABS: CALCIUM 8.6 mg/dL (8.4-10.2); CREATININE, serum 0.79 mg/dL (0.72-1.25); POTASSIUM 3.9 mmol/L (3.5-4.5)
[2021-01-29 07:47] VITALS: BP 125/72; PULSE 85; TEMP 98.3
[2021-01-29] MEDS ORDERED: OMNICEF 300MG300 MG PO (10:23)
[2021-01-29] MEDS ORDERED: FLAGYL500 MG PO (10:23)
--- NOTE | 2021-01-29 11:03 | NUR ---
Dc'd INT IV lock. 20g catheter removed in tact.
--- NOTE | 2021-01-29 11:44 | NUR ---
Discharge paperwork and instructions reviewed with patient and his mother. All questions answered at this time. IV removed by student, drain removal by Dr. Phna. Pt walked out of facility by staff member at this time.
--- NOTE | 2021-01-29 13:18 | NUR ---
First visit from the recreation manager. No needs right now.
== END 2021-01-29 11:46 | disposition home or self-care (01) | DRG 862 ==
LOC: SURG 16:05
PROVIDERS: Surgery; ADMIT Surgery
PROC: 0W9G30Z Drainage of Peritoneal Cavity with Drainage Device, Percutaneous Approach (ICD-10-PCS; principal; 2021-01-26)
DX: T81.43XA Infection following a procedure, organ and space surgical site, initial encounter (principal); K65.1 Peritoneal abscess; I10 Essential (primary) hypertension; E66.9 Obesity, unspecified; K21.9 Gastro-esophageal reflux disease without esophagitis; F31.9 Bipolar disorder, unspecified; E87.5 Hyperkalemia; B95.4 Other streptococcus as the cause of diseases classified elsewhere; B96.20 Unspecified Escherichia coli [E. coli] as the cause of diseases classified elsewhere; Y83.8 Other surgical procedures as the cause of abnormal reaction of the patient, or of later complication, without mention of misadventure at the time of the procedure; Z87.891 Personal history of nicotine dependence
CPT/HCPCS: C1729; C1769; C9113; J0696; J0744; J1170; J1650; J1885; J2250; J2405; J2543; J3010; J3480; J7030; Q9967